=== PATIENT | female | born 1965 | race African-American/Black ===

== ENCOUNTER 2018-03-28 12:11 | Emergency (ER) | payer OTHER ==
[2018-03-28 12:15] VITALS: PULSE 110; BMI 38.0
--- NOTE | 2018-03-28 13:18 | PDOC ---
History of Present Illness - General History Source: Patient, Old Records, Primary Care Provider Exam Limitations: No Limitations - History of Present Illness Initial Comments: 03/28/18 15:30 The patient is a 53 year old female, with a significant past medical history of anemia, who presents to the emergency department with nausea and dizziness for the past week. The patient states that the dizziness feels as though the room is spinning. The patient reports one episode of non bloody non bilious emesis earlier this morning. The patient reports that she has not been able to eat or drink anything secondary to the nausea but states she is currently hungry. She does report that she was started on HCTZ 25 mg last week due to lower extremity edema and has been urinating frequently. She denies any fever, chills, headache , shortness of breath, chest pain, focal weakness, numbness, diarrhea, constipation or dysuria. The patient denies any recent travel. The patient denies any sick contacts. LMP: December 2017. Allergies: None reported. Past Surgical History: . Social History: Non-smoker. Denies alcohol or drug use. PCP: Dr. Kirti Williamson <Cordelia Tabor - Last Filed: 03/28/18 15:37> <Francisco Wesley - Last Filed: 03/28/18 17:05> - General Chief Complaint: Lightheaded Stated Complaint: NEAR SYNCOPE Time Seen by Provider: 03/28/18 13:18 Past History <Cordelia Tabor - Last Filed: 03/28/18 15:37> - Past Medical History Anemia: Yes COPD: No - Suicide/Smoking/Psychosocial Hx Smoking History: Never smoked Have you smoked in the past 12 months: No Information on smoking cessation initiated: No Hx Alcohol Use: No Drug/Substance Use Hx: No Substance Use Type: None <Francisco Wesley - Last Filed: 03/28/18 17:05> - Past Medical History Allergies/Adverse Reactions: Allergies Allergy/AdvReac Type Severity Reaction Status Date / Time sulfamethoxazole Allergy Verified 03/28/18 12:13 [From Bactrim] trimethoprim [From Bactrim] Allergy Verified 03/28/18 12:13 Review of Systems - Review of Systems Able to Perform ROS?: Yes Comments:: 03/28/18 15:37 GENERAL/CONSTITUTIONAL: No fever or chills. No weakness. HEAD, EYES, EARS, NOSE AND THROAT: No change in vision. No ear pain or discharge. No sore throat. GASTROINTESTINAL: +Nausea, vomiting. No diarrhea or constipation. GENITOURINARY: No dysuria, frequency, or change in urination. CARDIOVASCULAR: No chest pain or shortness of breath. RESPIRATORY: No cough, wheezing, or hemoptysis. MUSCULOSKELETAL: No joint or muscle swelling or pain. No neck or back pain. SKIN: No rash. NEUROLOGIC: +Dizziness. No headache, loss of consciousness or change in strength /sensation. ENDOCRINE: No increased thirst. No abnormal weight change. HEMATOLOGIC/LYMPHATIC: No anemia, easy bleeding, or history of blood clots. ALLERGIC/IMMUNOLOGIC: No hives or skin allergy. <Cordelia Tabor - Last Filed: 03/28/18 15:37> *Physical Exam - Vital Signs Last Vital Signs Temp Pulse Resp BP Pulse Ox 98.5 F 110 H 18 136/71 100 03/28/18 12:13 03/28/18 12:13 03/28/18 12:13 03/28/18 12:13 03/28/18 12:13 - Physical Exam Comments: 03/28/18 15:31 GENERAL: Awake, alert, and fully oriented, uncomfortable appearing. HEAD: No signs of trauma. EYES: PERRLA, EOMI, sclera anicteric, conjunctiva clear. ENT: Dry mucous membranes. Auricles normal inspection, hearing grossly normal, nares patent, oropharynx clear without exudates. NECK: Normal ROM, supple, no lymphadenopathy, JVD, or masses. LUNGS: Breath sounds equal, clear to auscultation bilaterally. No wheezes and no crackles. HEART: Tachycardic. Normal S1 and S2, no murmurs, rubs or gallops. ABDOMEN: Soft, nontender, normoactive bowel sounds. No guarding, no rebound. No masses. EXTREMITIES: Normal range of motion, no edema. No clubbing or cyanosis. No cords , erythema, or tenderness. BACK: No midline spinal tenderness in cervical/thoracic/lumbar region. NEUROLOGICAL: Normal speech, cranial nerves intact, negative pronator drift, 5/ 5 strength in all 4 extremities, normal sensation to light touch in all 4 extremities, normal cerebellar exam, normal gait, normal reflexes and tone. SKIN: Warm, dry, normal turgor, no rashes or lesions noted. <Cordelia Tabor - Last Filed: 03/28/18 15:37> - Vital Signs Last Vital Signs Temp Pulse Resp BP Pulse Ox 98.5 F 110 H 18 136/71 100 03/28/18 12:13 03/28/18 12:13 03/28/18 12:13 03/28/18 12:13 03/28/18 12:13 <Dean Wesleycollette - Last Filed: 03/28/18 17:05> ED Treatment Course - LABORATORY CBC & Chemistry Diagram: 03/28/18 14:00 03/28/18 13:38 - ADDITIONAL ORDERS Additional order review: Laboratory Results 03/28/18 03/28/18 03/28/18 14:15 14:15 13:38 Sodium 143 Potassium 3.8 Chloride 107 Carbon Dioxide 24 Anion Gap 12 BUN 15 Creatinine 0.6 Creat Clearance w eGFR > 60 Random Glucose 78 Calcium 10.1 Magnesium 1.8 Total Bilirubin 0.4 AST 34 ALT 42 Alkaline Phosphatase 90 Total Protein 7.0 Albumin 3.2 L Urine Color Ltyellow Urine Appearance Cloudy Urine pH 9.0 H Ur Specific [place] 1.011 Urine Protein Negative Urine Glucose (UA) Negative Urine Ketones Negative Urine Blood Negative Urine Nitrite Negative Urine Bilirubin Negative Urine Urobilinogen Negative Ur Leukocyte Esterase 3+ H Urine WBC (Auto) 3 Urine RBC (Auto) 2 Ur Epithelial Cells Moderate Urine HCG, Qual Negative 03/28/18 14:00 RBC 4.17 MCV 79.3 L MCHC 31.3 L RDW 17.3 H MPV 8.0 Neutrophils % 69.1 Lymphocytes % 20.0 Monocytes % 10.3 H Eosinophils % 0.4 Basophils % 0.2 - Medications Given in the ED: ED Medications Discontinued Medications Generic Name Dose Route Start Last Admin Trade Name Freq PRN Reason Stop Dose Admin Sodium Chloride 1,000 mls @ 1,000 mls/hr 03/28/18 13:51 03/28/18 14:13 Normal Saline - IV 03/28/18 14:50 1,000 mls/hr ASDIR STA Administration Meclizine HCl 25 mg 03/28/18 13:51 03/28/18 14:13 Antivert - PO 03/28/18 13:52 25 mg ONCE ONE Administration Ondansetron HCl 4 mg 03/28/18 13:51 03/28/18 14:13 Zofran Injection IVPUSH 03/28/18 13:52 4 mg ONCE ONE Administration <Cordelia Tabor - Last Filed: 03/28/18 15:37> - LABORATORY CBC & Chemistry Diagram: 03/28/18 14:00 03/28/18 13:38 <Francisco Wesley - Last Filed: 03/28/18 17:05> Medical Decision Making - Medical Decision Making 03/28/18 13:56 53-year-old female with a history of anemia presents emergency Department with 1 week of room spinning dizziness associated with presyncope. Vitals remarkable for tachycardia to 110. Differential includes but not limited to anemia versus dehydration versus electrolyte abnormality vs peripheral vertigo. Likely peripheral given symptoms are positional, and patient denies any headache and has minimal risk factors. Plan: -labs -UA -IVF, zofran, meclizine -reassess 03/28/18 17:01 Labs wnl. Rpt HR 88. Symptoms have completely resolved with meclizine, zofran, fluids. Pt ambulating in ED, requesting removal of IV. Pt tolerating PO, requests DC home. WIll DC with meclizine. I discussed the physical exam findings, ancillary test results and final diagnoses with the patient. I answered all of the patient's questions. The patient was satisfied with the care received and felt comfortable with the discharge plan and treatment plan. The patient will call their primary care physician within 24 hours to arrange follow-up and will return to the Emergency Department with any new, persistent or worsening symptoms. <Francisco Wesley - Last Filed: 03/28/18 17:05> *DC/Admit/Observation/Transfer - Attestations Scribe Attestion: 03/28/18 15:32 Documentation prepared by Cordelia Tabor, acting as vice president medical affairs for Francisco Wesley MD. <Cordelia Tabor - Last Filed: 03/28/18 15:37> - Discharge Dispostion Admit: No - Attestations Physician Attestion: 03/28/18 17:05 I, Dr. Francisco Wesley MD, attest that this document has been prepared under my direction and personally reviewed by me in its entirety. I further attest, that it accurately reflects all work, treatment, procedures and medical decision -making performed by me. <Francisco Wesley - Last Filed: 03/28/18 17:05> Diagnosis at time of Disposition: Vertigo - Discharge Dispostion Disposition: HOME Condition at time of disposition: Stable - Referrals Referrals: Kirti Williamson MD [Primary Care Provider] - - Patient Instructions Printed Discharge Instructions: DI for Vertigo Additional Instructions: Follow-up with your primary care doctor as scheduled next week. Take meclizine as needed for room spinning dizziness. Return to the emergency department if you have any new, worsening or concerning symptoms. - Post Discharge Activity
[2018-03-28] MEDS ORDERED: SODIUM CHLORIDE 1,000 ML IV STA (13:51)
[2018-03-28] MEDS ORDERED: MECLIZINE HCL 25 MG TABLET (FP) PO ONE (13:51)
[2018-03-28] MEDS ORDERED: ONDANSETRON 4 MG/2 ML VIAL IVPUSH ONE (13:51)
[2018-03-28] MEDS ORDERED: ONDANSETRON 4 MG/2 ML VIAL ONE (14:06)
[2018-03-28] MEDS ORDERED: MECLIZINE HCL 25 MG TABLET (FP) ONE (14:06)
[2018-03-28 14:39] LABS: BASO % 0.2 % (0-2.0); EOS % 0.4 % (0-4.5); HEMOGLOBIN 10.3 GM/dL (10.7-15.3); MCH 24.8 pg (25.7-33.7); MCHC 31.3 g/dl (32.0-36.0); MEAN CELL VOLUME 79.3 fl (80-96); MONO % 10.3 % (3.8-10.2); NEUT % 69.1 % (42.8-82.8); PLATELET COUNT 300 K/MM3 (134-434); RBC 4.17 M/mm3 (3.60-5.2); RDW 17.3 % (11.6-15.6); WHITE BLOOD COUNT 5.9 K/mm3 (4.0-10.0)
[2018-03-28 14:43] LABS: URINE APPEARANCE CLOUDY; URINE BILIRUBIN NEGATIVE (<2.0 mg/dL); URINE BLOOD NEGATIVE (NEGATIVE); URINE COLOR LTYELLOW; URINE GLUCOSE (UA) NEGATIVE (NEGATIVE); URINE KETONE NEGATIVE (NEGATIVE); URINE NITRITE NEGATIVE (NEGATIVE); URINE PROTEIN NEGATIVE (NEGATIVE); URINE UROBILINOGEN NEGATIVE mg/dL (0.2-1.0)
[2018-03-28 14:44] LABS: URINE LEUK ESTERASE 3+ (NEGATIVE)
[2018-03-28 14:53] LABS: ALBUMIN 3.2 g/dl (3.4-5.0); ANION GAP 12 (8-16); BLOOD UREA NITROGEN 15 mg/dL (7-18); CALCIUM 10.1 mg/dL (8.5-10.1); CHLORIDE 107 mmol/L (98-107); CO2 24 mmol/L (21-32); CREATININE 0.6 mg/dL (0.55-1.02); GLUCOSE,RANDOM 78 mg/dL (74-106); MAGNESIUM 1.8 mg/dL (1.8-2.4); POTASSIUM 3.8 mmol/L (3.5-5.1); SGOT/AST 34 U/L (15-37); SGPT/ALT 42 U/L (12-78); SODIUM 143 mmol/L (136-145)
[2018-03-28 14:55] LABS: EPI CELLS MODERATE /HPF (FEW)
[2018-03-28 14:55] LABS: ALK PHOS 90 U/L (45-117); BILIRUBIN,TOTAL 0.4 mg/dL (0.2-1.0)
[2018-03-28 15:49] LABS: N-TERMINAL BNP 370.87 pg/ml (5-125)
[2018-03-28 17:17] VITALS: BP 154/79; TEMP 98.4
--- NOTE | 2018-04-03 13:59 | EKG ---
Test Reason : Blood Pressure : / mmHG Vent. Rate : 104 BPM Atrial Rate : 104 BPM P-R Int : 134 ms QRS Dur : 080 ms QT Int : 336 ms P-R-T Axes : 045 030 030 degrees QTc Int : 441 ms SINUS TACHYCARDIA POSSIBLE LEFT ATRIAL ENLARGEMENT BORDERLINE ECG NO PREVIOUS ECGS AVAILABLE Confirmed by ROMEL ORTA, GERALDINE ([id number]) on 04/03/2018 1:58:53 PM Referred By: Confirmed By:GERALDINE URENA MD
== END 2018-03-28 17:15 | disposition home or self-care (01) ==
LOC: JER 12:11
PROC: 3E033GC Introduction of Other Therapeutic Substance into Peripheral Vein, Percutaneous Approach (ICD-10-PCS; principal; 2018-03-28)
PROC: 3E0337Z Introduction of Electrolytic and Water Balance Substance into Peripheral Vein, Percutaneous Approach (ICD-10-PCS; 2018-03-28)
DX: R42 Dizziness and giddiness (principal); D64.9 Anemia, unspecified
CPT/HCPCS: 36415; 71045-TC-FY; 80053; 81003; 81015; 83735; 83880; 84484; 84703; 85025; 87086; 93005; 93010; 99284-25; J7030

== ENCOUNTER 2024-03-01 13:38 | Emergency (ER) | payer OTHER ==
[2024-03-01 13:44] VITALS: BP 155/77; PULSE 67; RESP 18; TEMP 98.7; BMI 39.1
[2024-03-01] MEDS ORDERED: KETOROLAC TROMETHAMINE 15 MG/ML VIAL ONE (14:09)
[2024-03-01] MEDS ORDERED: ACETAMINOPHEN 500 MG TABLET (FP) ONE (14:09)
[2024-03-01] MEDS ORDERED: LIDOCAINE 4% PATCH TP ONE (14:09)
[2024-03-01 14:30] LABS: EPI CELLS >36 /uL (0-25.1); HYALINE CASTS 3 /uL (0-3.1); PH,URINE 5.5 (5.0-8.0); URINE APPEARANCE CLOUDY; URINE BACTERIA 1107 /uL (0-1359); URINE BILIRUBIN NEGATIVE (NEGATIVE); URINE COLOR YELLOW; URINE GLUCOSE (UA) NEGATIVE (NEGATIVE); URINE KETONE TRACE (NEGATIVE); URINE LEUK ESTERASE 2+ (NEGATIVE); URINE NITRITE NEGATIVE (NEGATIVE); URINE PROTEIN TRACE (NEGATIVE); URINE RBC 17 /uL (0-23.9); URINE WBC 144 /uL (0-25.8)
[2024-03-01] MEDS: LIDOCAINE 4% PATCH TP ONE (14:30)
[2024-03-01] MEDS: KETOROLAC TROMETHAMINE 15 MG/ML VIAL IM ONE (14:31)
[2024-03-01] MEDS: ACETAMINOPHEN 500 MG TABLET (FP) PO ONE (14:32)
[2024-03-01] MEDS ORDERED: LIDOCAINE PATCH REMOVAL MC ONE (22:00)
== END 2024-03-01 15:14 | disposition home or self-care (01) ==
LOC: JER 13:38
PROC: 3E0233Z Introduction of Anti-inflammatory into Muscle, Percutaneous Approach (ICD-10-PCS; principal; 2024-03-01)
DX: M54.6 Pain in thoracic spine (principal)
CPT/HCPCS: 71046-TC-FY; 81003; 87086; 99284-25

== ENCOUNTER 2024-07-25 14:29 | Emergency (ER) | payer OTHER ==
[2024-07-25 14:42] VITALS: BP 153/94; PULSE 75; RESP 18; TEMP 98.2; BMI 42.0
[2024-07-25] MEDS ORDERED: KETOROLAC TROMETHAMINE 30 MG/1 ML VIAL ONE (15:53)
[2024-07-25] MEDS ORDERED: LIDOCAINE 4% PATCH TP ONE (15:53)
[2024-07-25] MEDS ORDERED: ACETAMINOPHEN 500 MG TABLET (FP) ONE (15:53)
[2024-07-25] MEDS: KETOROLAC TROMETHAMINE 30 MG/1 ML VIAL IM ONE (15:58)
[2024-07-25] MEDS: LIDOCAINE 4% PATCH TP ONE (15:58)
[2024-07-25] MEDS: ACETAMINOPHEN 500 MG TABLET (FP) PO ONE (15:58)
== END 2024-07-25 16:05 | disposition home or self-care (01) ==
LOC: JERFT 14:29
PROC: 3E0233Z Introduction of Anti-inflammatory into Muscle, Percutaneous Approach (ICD-10-PCS; principal; 2024-07-25)
DX: M17.11 Unilateral primary osteoarthritis, right knee (principal); M25.561 Pain in right knee
CPT/HCPCS: 73562-TC-RT-FY; 99284-25